=== PATIENT | male | born 1970 | race Caucasian/White ===

== ENCOUNTER 2019-06-20 08:57 | Day surgery (SDC) | payer BC ==
[~2019-06-20 08:57] MED LIST: ACETAMINOPHEN 1,000 MG/100 ML BTL IVPB ONE; CLINDAMYCIN PHOS/D5W 900MG 900 MG/50 ML BAG IVPB ONE
[2019-06-20] MEDS ORDERED: MIDAZOLAM HCL 2MG/2ML VIAL IV ONE (08:58)
[2019-06-20] MEDS ORDERED: FENTANYL PF 100MCG/2ML VIAL IV ONE (08:58)
[2019-06-20] MEDS ORDERED: ONDANSETRON HCL IV 4 MG/2 ML VIAL IVP ONE (08:58)
[2019-06-20] MEDS ORDERED: PROPOFOL 10 MG/ML VIAL IV ONE (08:58)
[2019-06-20] MEDS ORDERED: LIDOCAINE 2% MDV (20MG/ML) 20ML VIAL IV ONE (08:58)
[2019-06-20] MEDS ORDERED: *PACU ONLY* KETAMINE HCL 10 MG/ML (20ML) VIAL IV ONE (08:58)
[2019-06-20] MEDS ORDERED: GLYCOPYRROLATE 0.2 MG/ML ML IV ONE (08:58)
[2019-06-20] MEDS ORDERED: RINGERS SOLUTION,LACTATED 1,000 ML IV ONE ×2 (09:30→12:01)
[2019-06-20] MEDS ORDERED: BUPIVACAINE 0.5% W/EPI MPF 30 ML VIAL SQ ONE (11:54)
[2019-06-20] MEDS ORDERED: MORPHINE SULFATE 10MG/1ML **1ML VIAL IU ONE ×2 (11:55→12:43)
[2019-06-20] MEDS ORDERED: METHYLPREDNISOLONE 40MG/VIAL IU ONE (11:55)
--- NOTE | 2019-06-23 06:20 | Operative Note ---
DATE OF SURGERY: 06/20/2019 PREOPERATIVE DIAGNOSIS: Tear of the rotator cuff on the left. POSTOPERATIVE DIAGNOSES: 1. Large chronic tear of the rotator cuff. 2. Complex glenohumeral labral tear from the 6- to 9-o'clock position. 3. Diffuse synovitis left shoulder. 4. Profound external impingement of left shoulder. 5. 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 OPERATION: 1. Open repair of a chronically torn left rotator cuff tendon. 2. Left shoulder arthroscopy with interarticular debridement. 3. Left shoulder open acromioplasty, CA ligament resection, subacromial bursectomy. 4. Left shoulder distal clavicle resection. STAFF SURGEON: Wayne Hammer MD ANESTHESIA: Block with sedation. PREPARATION: Chloraprep. INDIVIDUAL CONSIDERATIONS: None. PROCEDURE: The patient was taken to the operating room, placed supine on the operating room table. He had a successful induction of a general anesthetic. The left lower extremity was prepped and draped in the usual fashion. He was then placed in a semi-seated beach chair position. Examination under anesthesia showed no instability. The patient had a posterior portal identified for arthroscopy. Skin was infiltrated with 0.5% Marcaine with epinephrine prior. An 18-gauge spinal needle was placed in the joint, and the joint was inflated with normal saline. A stab wound was made, and a blunt-tipped trocar for the scope was placed in the joint. The joint was inflated with normal saline. An anterior accessory portal was then made just inferior to the intact long head of the biceps tendon in a retrograde fashion with a Wissinger kartik, and the joint was irrigated out. He had diffuse synovitis. This was debrided with a shaver. The glenohumeral joint was normal. Obvious large tear of the supraspinatus. Subscap was normal. Long head was intact. There was fraying of the labrum from about 6- to 9-o'clock and this was smoothed off with a shaver. After irrigation, portals were closed with juan ramon. The patient had an anterior approach to the subacromial space and distal clavicle. Skin was again infiltrated with 0.5% Marcaine with epinephrine prior. Sharp dissection carried down through skin and subcutaneous tissues. Small veins were coagulated with a Bovie. An anterior deltoid interval was developed. Care was taken not to split the deltoid more than about 4 cm distal to the anterior tip of the acromion to prevent injury to the axillary nerve. Once in the subacromial space, there were huge spurs at the AC joint and huge spurs at the distal clavicle. CA ligament was resected with a Bovie. Distal clavicle was resected with an oscillating saw. An anterior acromioplasty was performed taking mainly spur taking a thickness of about a centimeter and tapering towards posteromedially to include the large spurs at the AC joint. The undersurface was smoothed with a rasp. A very thick bursa was debrided out. The patient had a huge tear of his rotator cuff. Basically, all the supraspinatus extending into the infraspinatus but luckily I was able to mobilize it completely and debride it back to a bleeding tendon. I then was able to freshen up the tuberosity with a vaibhav and then bring the remaining tendon back to the tuberosity with buried knot #1 Ethibond sutures going directly through the tuberosity and placing retention sutures and tying it down distally affecting a near anatomic repair. I placed the shoulder through a full range of motion to ensure no further impingement. After irrigation, the deltoid was reattached to the remaining acromion with multiple interrupted #2 Vicryl going directly through the bony acromion. The periosteal cuff of the distal clavicle was closed with running #2 Vicryl. Anterior deltoid interval was closed with running #1 Vicryl. Subcu was closed with running 2-0 plus Vicryl and skin was closed with juan ramon. About 15 mL of 0.5% Marcaine with epinephrine along with 10 mg of morphine was injected into the subacromial space through a sterile 18-gauge needle. A sterile bulky compressive dressing was applied. The patient tolerated the procedure well. Needle and sponge counts were correct. Estimated blood loss was minimal. He was taken back to recovery in good condition. There were no complications. HARLAN
== END 2019-06-20 14:10 | disposition home or self-care (01) ==
LOC: SUR 08:57
PROVIDERS: ATTEND Orthopaedic Surgery
DX: M75.102 Unspecified rotator cuff tear or rupture of left shoulder, not specified as traumatic (principal); S43.432A Superior glenoid labrum lesion of left shoulder, initial encounter; M65.812 Other synovitis and tenosynovitis, left shoulder; M75.42 Impingement syndrome of left shoulder; M19.012 Primary osteoarthritis, left shoulder; F17.210 Nicotine dependence, cigarettes, uncomplicated
CPT/HCPCS: 29822; 23412; 23130; 23120; 01610; 64415; J2405; J3010; J3490; J2270; 76942; J1030; J7120